=== PATIENT | female | born 1955 | race African-American/Black ===

== ENCOUNTER 2019-09-04 15:03 | Inpatient (IN) | payer MEDICAID ==
[~2019-09-04] VITALS: Ht 167.6 cm; Wt 103.4 kg
[2019-09-04] MEDS ORDERED: GLIP10TA10 PO (15:22)
[2019-09-04] MEDS ORDERED: NITROGLYCERIN OINT 1GM/INCH UDPKT TD ONE (16:15)
[2019-09-04] MEDS ORDERED: ASPIRIN 325MG EC TABLET PO ONE (16:15)
[2019-09-04 16:36] LABS: BASOPHILS % 1.7 % (0.0-2.0); EOSINOPHILS % 1.3 % (0.0-5.0); HEMATOCRIT. 43.3 % (36.0-48.0); HEMOGLOBIN. 15.1 g/dL (12.0-16.0); LYMPHOCYTES % 29.5 % (20.0-50.0); MEAN CORPUSCULAR HEMOGLOBIN 30.3 pg (28.0-32.0); MEAN CORPUSCULAR VOLUME 86.9 fL (81.0-99.0); MEAN PLATELET VOLUME 9.2 fl (7.4-10.4); MONOCYTES % 6.7 % (2.0-8.0); NEUTROPHILS % 60.8 % (40.0-76.0); PLATELET 219 x1000/uL (130-400); RED BLOOD CELL COUNT 4.99 mill/uL (4.2-5.4); RED CELL DISTRIBUTION WIDTH 13.6 % (11.6-14.6)
[2019-09-04 16:42] LABS: PROTHROMBIN TIME 10.5 sec (9.6-11.0)
[2019-09-04 16:43] LABS: CHLORIDE 105 mEq/L (98-107)
[2019-09-04] MEDS ORDERED: ONDANSETRON HCL 4MG/2ML INJ IV PRN (18:45)
[2019-09-04] MEDS ORDERED: MAGNESIUM/ALUMINUM HYDROXIDE/SIMETHICONE 30ML UDC PO PRN (18:45)
[2019-09-04] MEDS ORDERED: DOCUSATE SODIUM 100MG CAPSULE PO PRN (18:45)
[2019-09-04] MEDS ORDERED: CLONIDINE 0.1MG TABLET PO PRN (18:45)
[2019-09-04] MEDS ORDERED: DEXTROSE 50% WATER 50ML SYRINGE IV PRN (18:45)
[2019-09-04] MEDS ORDERED: IPRATROPIUM/ALBUTEROL 0.5-3(2.5)MG/3ML NEB ORI PRN (18:45)
[2019-09-04] MEDS ORDERED: ACETAMINOPHEN 325MG TABLET PO PRN ×2 (18:45)
[2019-09-04] MEDS ORDERED: GUAIFENESIN 200MG/10ML SUGAR FREE UDC PO PRN (18:45)
[2019-09-04] MEDS ORDERED: ENOXAPARIN 40MG/0.4ML SYR SUBCUT SCH (18:45)
[2019-09-04] MEDS ORDERED: NITROGLYCERIN 0.4MG TABLET SL SL PRN (18:45)
[2019-09-04] MEDS ORDERED: INSULIN LISPRO 100 UNITS/ML SUBCUT SCH (21:00)
[2019-09-04] MEDS ORDERED: FAMOTIDINE 20MG TABLET PO SCH ×2 (21:00)
[2019-09-04] MEDS: METOPROLOL TARTRATE 25MG TABLET PO SCH (21:00)
[2019-09-04] MEDS: ASCORBIC ACID 500 MG TABLET PO SCH (21:00)
[2019-09-04] MEDS ORDERED: BLOOD SUGAR DIAGNOSTIC STRIP TEST SCH (21:00)
[2019-09-04] MEDS ORDERED: SUCRALFATE 1 G/10 ML UDC PO SCH (21:00)
[2019-09-04] MEDS ORDERED: NA PHOS,M-B/NA PHOS,DI-BA ENEMA 118ML PR PRN (21:45)
[2019-09-04] MEDS ORDERED: ZOLPIDEM TARTRATE 5MG TABLET PO PRN (21:47)
[2019-09-04] MEDS: KETOROLAC 15MG/ML VIAL IV PRN (21:56)
[2019-09-04] MEDS: SUCRALFATE 1 G/10 ML UDC PO SCH (23:25)
[2019-09-04] MEDS: INSULIN LISPRO 100 UNITS/ML SUBCUT SCH (23:25)
[2019-09-04 23:56] LABS: *AMPHETAMINES SCREEN URINE NEGATIVE (NEGATIVE); *BARBITURATES SCREEN URINE NEGATIVE (NEGATIVE); *BENZODIAZEPINES SCREEN URINE NEGATIVE (NEGATIVE); *COCAINE SCREEN URINE NEGATIVE (NEGATIVE); METHADONE URINE SCREEN NEGATIVE (NEGATIVE); OPIATES URINE SCREEN NEGATIVE (NEGATIVE)
[2019-09-04 23:57] LABS: CANNABINOID URINE SCREEN PRESUMTIVE POSITIVE (NEGATIVE); PHENCYCLIDINE URINE SCREEN NEGATIVE (NEGATIVE)
[2019-09-05] MEDS ORDERED: INSULIN GLARGINE UD 100 UNITS/ML SYR SUBCUT SCH
[2019-09-05 00:13] LABS: CREATINE KINASE 63 IU/L (26-192)
[2019-09-05 00:14] LABS: CREATINE KINASE MB FRACTION < 1.0 ng/mL (0.5-3.6)
[2019-09-05] MEDS: KETOROLAC 15MG/ML VIAL IV PRN ×3 (04:39→20:24)
[2019-09-05 05:30] LABS: CREATINE KINASE 66 IU/L (26-192)
[2019-09-05 05:31] LABS: CREATINE KINASE MB FRACTION < 1.0 ng/mL (0.5-3.6)
[2019-09-05] MEDS: BLOOD SUGAR DIAGNOSTIC STRIP TEST SCH ×4 (07:57→20:37)
[2019-09-05] MEDS: INSULIN LISPRO 100 UNITS/ML SUBCUT SCH ×4 (07:57→20:48)
[2019-09-05 08:00] VITALS: BP 143/72
[2019-09-05] MEDS ORDERED: ENOXAPARIN 40MG/0.4ML SYR SUBCUT SCH (09:00)
[2019-09-05] MEDS: ZINC SULFATE 220 MG ( 50 ) CAPSULE PO SCH (09:46)
[2019-09-05] MEDS: ASCORBIC ACID 500 MG TABLET PO SCH ×2 (09:47→20:25)
[2019-09-05] MEDS: METOPROLOL TARTRATE 25MG TABLET PO SCH ×2 (09:47→20:32)
[2019-09-05] MEDS: ASPIRIN 325MG EC TABLET PO SCH (09:47)
[2019-09-05 11:29] VITALS: BP 143/72
[2019-09-05] MEDS ORDERED: CLINDAMYCIN 600 MG in DEXTROSE 5% WATER 50 ML IV SCH (11:45)
[2019-09-05] MEDS ORDERED: GABA-531 PO (11:45)
[2019-09-05] MEDS ORDERED: HYDR-4135 PO (11:45)
[2019-09-05] MEDS ORDERED: METF-416 MT (11:45)
[2019-09-05 12:00] VITALS: BP 154/87
[2019-09-05] MEDS: SUCRALFATE 1 G/10 ML UDC PO SCH ×3 (12:24→20:25)
[2019-09-05] MEDS: GABAPENTIN 300MG CAPSULE PO PRN ×2 (12:25→20:34)
[2019-09-05] MEDS ORDERED: GABAPENTIN 300MG CAPSULE PO SCH (14:00)
[2019-09-05] MEDS: CLINDAMYCIN 600MG PREMIX 50 ML IV SCH ×2 (14:59→21:29)
[2019-09-05 16:00] VITALS: BP 166/85
[2019-09-05] MEDS: FAMOTIDINE 20MG TABLET PO SCH (20:49)
[2019-09-05] MEDS ORDERED: IOHEXOL-300 100 ML BOTTLE ONE (20:49)
[2019-09-06] VITALS: BP 152/88
[2019-09-06] MEDS ORDERED: INSULIN GLARGINE UD 100 UNITS/ML SYR SUBCUT SCH
[2019-09-06 04:00] VITALS: BP 133/77
[2019-09-06] MEDS: GABAPENTIN 300MG CAPSULE PO PRN ×2 (04:23→21:18)
[2019-09-06] MEDS: CLINDAMYCIN 600MG PREMIX 50 ML IV SCH ×3 (04:26→21:19)
[2019-09-06] MEDS: KETOROLAC 15MG/ML VIAL IV PRN ×3 (04:28→17:22)
[2019-09-06] MEDS: SUCRALFATE 1 G/10 ML UDC PO SCH ×4 (05:33→21:19)
[2019-09-06] MEDS: BLOOD SUGAR DIAGNOSTIC STRIP TEST SCH ×4 (07:39→21:25)
[2019-09-06] MEDS: INSULIN LISPRO 100 UNITS/ML SUBCUT SCH ×6 (07:49→21:22)
[2019-09-06 08:00] VITALS: BP 137/54
[2019-09-06] MEDS: ASCORBIC ACID 500 MG TABLET PO SCH ×2 (09:16→21:19)
[2019-09-06] MEDS: ZINC SULFATE 220 MG ( 50 ) CAPSULE PO SCH (09:16)
[2019-09-06] MEDS: METOPROLOL TARTRATE 25MG TABLET PO SCH ×2 (09:17→21:18)
[2019-09-06] MEDS: FAMOTIDINE 20MG TABLET PO SCH ×2 (09:17→21:18)
[2019-09-06] MEDS: ENOXAPARIN 30MG/0.3ML SYR SUBCUT SCH ×2 (09:18→21:19)
[2019-09-06] MEDS: ASPIRIN 325MG EC TABLET PO SCH (10:42)
[2019-09-06] MEDS: INSULIN GLARGINE UD 100 UNITS/ML SYR SUBCUT SCH ×2 (10:43→21:23)
[2019-09-06 12:00] VITALS: BP 141/77
[2019-09-06 16:00] VITALS: BP 151/79
[2019-09-06 20:00] VITALS: BP 139/69
[2019-09-07] VITALS: BP 161/99
[2019-09-07] MEDS: KETOROLAC 15MG/ML VIAL IV PRN (04:57)
[2019-09-07] MEDS: GABAPENTIN 300MG CAPSULE PO PRN (04:58)
[2019-09-07] MEDS: CLINDAMYCIN 600MG PREMIX 50 ML IV SCH (05:04)
[2019-09-07] MEDS: BLOOD SUGAR DIAGNOSTIC STRIP TEST SCH (07:51)
[2019-09-07 08:00] VITALS: BP 146/73
[2019-09-07] MEDS: SUCRALFATE 1 G/10 ML UDC PO SCH (08:27)
[2019-09-07] MEDS: ASCORBIC ACID 500 MG TABLET PO SCH (08:27)
[2019-09-07] MEDS: ZINC SULFATE 220 MG ( 50 ) CAPSULE PO SCH (08:27)
[2019-09-07] MEDS: ASPIRIN 325MG EC TABLET PO SCH (08:28)
[2019-09-07] MEDS: METOPROLOL TARTRATE 25MG TABLET PO SCH (08:28)
[2019-09-07] MEDS: FAMOTIDINE 20MG TABLET PO SCH (08:28)
[2019-09-07] MEDS: ENOXAPARIN 30MG/0.3ML SYR SUBCUT SCH (08:30)
[2019-09-07] MEDS: INSULIN LISPRO 100 UNITS/ML SUBCUT SCH ×2 (08:32)
[2019-09-07 10:14] VITALS: BP 140/77
[2019-09-07] MEDS: INSULIN GLARGINE UD 100 UNITS/ML SYR SUBCUT SCH (10:23)
== END 2019-09-07 10:40 | disposition home or self-care (01) | DRG 198 ==
LOC: ER 15:03 → 5EST 18:28 → EDBEDREQTM 18:41 → EDBEDREQ 18:41 → ENRESERV 09-05 07:10
PROVIDERS: ADMIT Internal Medicine; ATTEND Internal Medicine
DX: R07.89 Other chest pain (principal); I25.10 Atherosclerotic heart disease of native coronary artery without angina pectoris; E44.0 Moderate protein-calorie malnutrition; E83.51 Hypocalcemia; E11.65 Type 2 diabetes mellitus with hyperglycemia; L03.317 Cellulitis of buttock; I25.2 Old myocardial infarction; I10 Essential (primary) hypertension; E66.9 Obesity, unspecified; L02.31 Cutaneous abscess of buttock; Z79.899 Other long term (current) drug therapy; Z86.73 Personal history of transient ischemic attack (TIA), and cerebral infarction without residual deficits; Z90.49 Acquired absence of other specified parts of digestive tract; Z68.36 Body mass index [BMI] 36.0-36.9, adult
CPT/HCPCS: 36415; 71045; 72193; 80053; 80061; 80305; 82550; 82553; 82962; 83036; 83880; 84484; 85025; 93005; 93970; 97162; 97165; 99285; J1650; J1815; J1885; J3490; Q9967

== ENCOUNTER 2019-10-16 13:22 | Emergency (ER) | payer MEDICAID ==
[~2019-10-16] VITALS: Ht 182.9 cm; Wt 100.0 kg
[~2019-10-16 13:22] MED LIST: GABA-531 PO; HYDR-4135 PO; METF-416 MT
[2019-10-16] MEDS ORDERED: INSU100V3 SUBCUT (13:35)
[2019-10-16] MEDS ORDERED: ACETAMINOPHEN 325MG TABLET PO ONE (14:15)
[2019-10-16] MEDS ORDERED: KETOROLAC 15MG/ML VIAL IV ONE (14:45)
[2019-10-16 15:01] LABS: BASOPHILS % 1.2 % (0.0-2.0); EOSINOPHILS % 2.2 % (0.0-5.0); HEMATOCRIT. 43.9 % (36.0-48.0); HEMOGLOBIN. 15.3 g/dL (12.0-16.0); LYMPHOCYTES % 35.8 % (20.0-50.0); MEAN CORPUSCULAR HEMOGLOBIN 30.6 pg (28.0-32.0); MEAN CORPUSCULAR VOLUME 87.6 fL (81.0-99.0); MONOCYTES % 7.9 % (2.0-8.0); NEUTROPHILS % 52.9 % (40.0-76.0); PLATELET 246 x1000/uL (130-400); RED BLOOD CELL COUNT 5.01 mill/uL (4.2-5.4); RED CELL DISTRIBUTION WIDTH 13.7 % (11.6-14.6)
[2019-10-16 15:10] LABS: CHLORIDE 106 mEq/L (98-107)
[2019-10-16 15:18] LABS: CREATINE KINASE 86 IU/L (26-192)
[2019-10-16 16:30] VITALS: BP 158/80
== END 2019-10-16 16:40 | disposition home or self-care (01) ==
LOC: ER 13:22
DX: M79.652 Pain in left thigh (principal); E11.42 Type 2 diabetes mellitus with diabetic polyneuropathy; Z79.4 Long term (current) use of insulin; I10 Essential (primary) hypertension; R74.8 Abnormal levels of other serum enzymes; Z79.899 Other long term (current) drug therapy
CPT/HCPCS: 36415; 80053; 82550; 83735; 85025; 93971; 96374; 99284; J1885

== ENCOUNTER 2020-04-27 00:12 | Inpatient (IN) | payer MEDICAID ==
[~2020-04-27] VITALS: Ht 167.6 cm; Wt 105.8 kg
[~2020-04-27 00:12] MED LIST changes: +INSU100V3 SUBCUT
[2020-04-27] MEDS ORDERED: ASPIRIN 81MG TABLET PO ONE (00:45)
[2020-04-27 01:28] LABS: BASOPHILS % 2.6 % (0.0-2.0); EOSINOPHILS % 1.4 % (0.0-5.0); HEMATOCRIT. 40.7 % (36.0-48.0); HEMOGLOBIN. 14.6 g/dL (12.0-16.0); LYMPHOCYTES % 27.9 % (20.0-50.0); MEAN CORPUSCULAR HEMOGLOBIN 30.5 pg (28.0-32.0); MEAN PLATELET VOLUME 8.8 fl (7.4-10.4); NEUTROPHILS % 58.1 % (40.0-76.0); PLATELET 233 x1000/uL (130-400); RED BLOOD CELL COUNT 4.79 mill/uL (4.2-5.4); RED CELL DISTRIBUTION WIDTH 13.1 % (11.6-14.6)
[2020-04-27] MEDS ORDERED: HYDROCODONE/ACETAMINOPHEN 5/325MG TABLET PO ONE (01:30)
[2020-04-27 01:31] LABS: CHLORIDE 102 mEq/L (98-107)
[2020-04-27] MEDS ORDERED: OXYCODONE HCL 5MG TABLET PO ONE (01:45)
[2020-04-27] MEDS ORDERED: ACETAMINOPHEN 325MG TABLET PO ONE (01:45)
[2020-04-27] MEDS ORDERED: ONDANSETRON HCL 4MG/2ML INJ IV STA (02:27)
[2020-04-27] MEDS ORDERED: MORPHINE SULFATE 4 MG/ML CPJ (NOT FOR IM USE) IV STA (02:27)
[2020-04-27] MEDS ORDERED: SODIUM CHLORIDE 0.9% 1,000 ML IV ONE (02:30)
[2020-04-27] MEDS ORDERED: IOHEXOL-350 100 ML BOTTLE ONE (03:29)
[2020-04-27] MEDS ORDERED: NITROGLYCERIN 0.4MG TABLET SL SL PRN (07:00)
[2020-04-27] MEDS ORDERED: MAGNESIUM/ALUMINUM HYDROXIDE/SIMETHICONE 30ML UDC PO PRN (07:00)
[2020-04-27] MEDS ORDERED: ENOXAPARIN 40MG/0.4ML SYR SUBCUT SCH (07:00)
[2020-04-27] MEDS ORDERED: DOCUSATE SODIUM 100MG CAPSULE PO PRN (07:00)
[2020-04-27] MEDS ORDERED: DEXTROSE 50% WATER 50ML SYRINGE IV PRN (07:00)
[2020-04-27] MEDS ORDERED: ONDANSETRON HCL 4MG/2ML INJ IV PRN (07:00)
[2020-04-27] MEDS ORDERED: IPRATROPIUM/ALBUTEROL 0.5-3(2.5)MG/3ML NEB NEB PRN (07:00)
[2020-04-27] MEDS ORDERED: GUAIFENESIN 200MG/10ML SUGAR FREE UDC PO PRN (07:00)
[2020-04-27] MEDS ORDERED: LORAZEPAM 0.5MG TABLET PO PRN (07:00)
[2020-04-27] MEDS ORDERED: ZOLPIDEM TARTRATE 5MG TABLET PO PRN (07:00)
[2020-04-27] MEDS ORDERED: CLONIDINE 0.1MG TABLET PO PRN (07:00)
[2020-04-27] MEDS: INSULIN LISPRO 100 UNITS/ML SUBCUT SCH ×7 (07:50→21:54)
[2020-04-27] MEDS: KETOROLAC 15MG/ML VIAL IV PRN ×3 (08:00→21:53)
[2020-04-27] MEDS: METOPROLOL TARTRATE 25MG TABLET PO SCH ×2 (09:00→21:53)
[2020-04-27] MEDS: ASPIRIN 325MG EC TABLET PO SCH (09:00)
[2020-04-27] MEDS: ZINC SULFATE 220 MG ( 50 ) CAPSULE PO SCH (09:00)
[2020-04-27] MEDS: FAMOTIDINE 20MG TABLET PO SCH ×2 (09:00→21:53)
[2020-04-27] MEDS: ENOXAPARIN 30MG/0.3ML SYR SUBCUT SCH ×2 (09:00→21:52)
[2020-04-27] MEDS: ASCORBIC ACID 500 MG TABLET PO SCH ×2 (09:00→21:53)
[2020-04-27] MEDS: BLOOD SUGAR DIAGNOSTIC STRIP TEST SCH ×4 (09:00→21:54)
[2020-04-27] MEDS: INSULIN GLARGINE UD 100 UNITS/ML SYR SUBCUT SCH (10:16)
[2020-04-27 10:23] LABS: *AMPHETAMINES SCREEN URINE NEGATIVE (NEGATIVE); *BARBITURATES SCREEN URINE NEGATIVE (NEGATIVE); *BENZODIAZEPINES SCREEN URINE NEGATIVE (NEGATIVE); *COCAINE SCREEN URINE NEGATIVE (NEGATIVE); METHADONE URINE SCREEN NEGATIVE (NEGATIVE); OPIATES URINE SCREEN PRESUMTIVE POSITIVE (NEGATIVE)
[2020-04-27 10:24] LABS: CANNABINOID URINE SCREEN NEGATIVE (NEGATIVE); PHENCYCLIDINE URINE SCREEN NEGATIVE (NEGATIVE)
[2020-04-27] MEDS ORDERED: POTASSIUM CHLORIDE 20MEQ TABLET SR PO NR (10:30)
[2020-04-27 15:03] LABS: CREATINE KINASE MB FRACTION < 1.0 ng/mL (0.5-3.6)
[2020-04-27 20:00] VITALS: BP 118/75
[2020-04-27 22:00] VITALS: BP 128/96
[2020-04-28] VITALS (8 sets, daily range): BP systolic 115–160; BP diastolic 56–99
[2020-04-28] MEDS: INSULIN GLARGINE UD 100 UNITS/ML SYR SUBCUT SCH ×2 (00:35→14:22)
[2020-04-28 00:55] LABS: CREATINE KINASE MB FRACTION < 1.0 ng/mL (0.5-3.6)
[2020-04-28] MEDS: KETOROLAC 15MG/ML VIAL IV PRN ×2 (04:40→12:06)
[2020-04-28] MEDS: BLOOD SUGAR DIAGNOSTIC STRIP TEST SCH ×2 (06:00→11:50)
[2020-04-28] MEDS: INSULIN LISPRO 100 UNITS/ML SUBCUT SCH ×4 (06:01→11:57)
[2020-04-28] MEDS ORDERED: REGADENOSON 0.4 MG/5 ML IV NR (09:15)
[2020-04-28] MEDS: ZINC SULFATE 220 MG ( 50 ) CAPSULE PO SCH (09:24)
[2020-04-28] MEDS: ASPIRIN 325MG EC TABLET PO SCH (09:24)
[2020-04-28] MEDS: METOPROLOL TARTRATE 25MG TABLET PO SCH (09:24)
[2020-04-28] MEDS: FAMOTIDINE 20MG TABLET PO SCH (09:24)
[2020-04-28] MEDS: ASCORBIC ACID 500 MG TABLET PO SCH (09:24)
[2020-04-28] MEDS ORDERED: REGADENOSON 0.4 MG/5 ML IV ONE (10:29)
[2020-04-28] MEDS: ENOXAPARIN 30MG/0.3ML SYR SUBCUT SCH (11:50)
[2020-04-28] MEDS ORDERED: GABAPENTIN 300MG CAPSULE PO PRN (14:00)
[2020-04-29] MEDS ORDERED: ASPIRIN 81MG EC TABLET PO SCH (09:00)
[2020-04-29] MEDS ORDERED: ISOSORBIDE MONONITRATE 30MG TABLET SR 24HR PO SCH (09:00)
[2020-05-27] MEDS ORDERED: HYDR-3281 MT (17:07)
== END 2020-04-28 16:39 | disposition home or self-care (01) | DRG 203 ==
LOC: ER 00:18 → 3WST 04:01 → ENRESERV 16:40
PROVIDERS: ADMIT Internal Medicine; ATTEND Internal Medicine
DX: M94.0 Chondrocostal junction syndrome [Tietze] (principal); E66.01 Morbid (severe) obesity due to excess calories; E87.1 Hypo-osmolality and hyponatremia; E87.6 Hypokalemia; E44.1 Mild protein-calorie malnutrition; I11.0 Hypertensive heart disease with heart failure; I50.9 Heart failure, unspecified; E78.5 Hyperlipidemia, unspecified; Z20.828 Contact with and (suspected) exposure to other viral communicable diseases; Z88.6 Allergy status to analgesic agent; Z88.8 Allergy status to other drugs, medicaments and biological substances; Z79.899 Other long term (current) drug therapy; Z79.4 Long term (current) use of insulin; Z90.49 Acquired absence of other specified parts of digestive tract; Z68.37 Body mass index [BMI] 37.0-37.9, adult; E11.65 Type 2 diabetes mellitus with hyperglycemia
CPT/HCPCS: 36415; 71045; 71275; 78452; 80053; 80061; 80305; 82553; 82962; 83036; 83880; 84484; 85025; 87426; 93005; 93306; 93970; 96374; 99285; A9500; J1650; J1815; J1885; J2270; J2405; J2785; J7030; Q9967

== ENCOUNTER 2020-05-27 14:44 | Emergency (ER) | payer MEDICAID ==
[~2020-05-27] VITALS: Ht 167.6 cm; Wt 101.0 kg
[~2020-05-27 14:44] MED LIST changes: -GABA-531 PO; +GABA-532 PO
[2020-05-27] MEDS ORDERED: MORPHINE SULFATE 4 MG/ML CPJ (NOT FOR IM USE) IV ONE (15:00)
[2020-05-27] MEDS ORDERED: ASPIRIN 81MG TABLET PO ONE (15:00)
[2020-05-27 15:32] LABS: BASOPHILS % 1.1 % (0.0-2.0); EOSINOPHILS % 1.8 % (0.0-5.0); HEMATOCRIT. 43.8 % (36.0-48.0); HEMOGLOBIN. 14.8 g/dL (12.0-16.0); LYMPHOCYTES % 39.1 % (20.0-50.0); MEAN CORPUSCULAR HEMOGLOBIN 29.4 pg (28.0-32.0); MEAN PLATELET VOLUME 8.6 fl (7.4-10.4); MONOCYTES % 6.1 % (2.0-8.0); NEUTROPHILS % 51.9 % (40.0-76.0); PLATELET 242 x1000/uL (130-400); RED BLOOD CELL COUNT 5.03 mill/uL (4.2-5.4); RED CELL DISTRIBUTION WIDTH 13.3 % (11.6-14.6)
[2020-05-27 15:35] LABS: CHLORIDE 106 mEq/L (98-107)
[2020-05-27] MEDS ORDERED: FAMO20TA8 PO (17:07)
[2020-05-27] MEDS ORDERED: HYDR-4346 MT (17:07)
[2020-05-27] MEDS ORDERED: ONDA4TAB11 PO (17:07)
[2020-05-27] MEDS ORDERED: OXYC-662 MT (17:25)
[2020-05-27 18:42] VITALS: BP 111/59
== END 2020-05-27 18:48 | disposition home or self-care (01) ==
LOC: ER 14:44
DX: R07.89 Other chest pain (principal); E86.0 Dehydration; R03.0 Elevated blood-pressure reading, without diagnosis of hypertension; E11.9 Type 2 diabetes mellitus without complications; I50.9 Heart failure, unspecified; Z86.73 Personal history of transient ischemic attack (TIA), and cerebral infarction without residual deficits; Z90.49 Acquired absence of other specified parts of digestive tract; Z79.899 Other long term (current) drug therapy
CPT/HCPCS: 36415; 71045; 80053; 83690; 83880; 84484; 85025; 85379; 93005; 96374; 99285; J2270; Z7610